=== PATIENT | male | born 1995 | race Two or more races ===

== ENCOUNTER 2019-03-26 07:46 | Emergency (ER) | payer OTHER ==
[2019-03-26 07:56] VITALS: BMI 18.6
--- NOTE | 2019-03-26 08:08 | PDOC ---
History of Present Illness - General Chief Complaint: Respiratory Stated Complaint: RESPIRATORY PROBLEM Time Seen by Provider: 03/26/19 08:08 History Source: Patient Exam Limitations: No Limitations - History of Present Illness Initial Comments: 24 year old male with no PMH presented to ED for chest pain since last night. Pt reported the first symptom he developed was an itchy rash to his legs x3-4 months ago. He reported the rash has been progressing to different parts of his body, his buttocks, legs, arms. He reported that about a week ago he developed sweats/chills/body aches/nausea/fever/cough 101F, figured he had the flu. He reported he has had >20 pound of weight loss in the last month despite eating a lot. He reported that he is homosexual having sex with another man who is HIV positive for the last 4-5 years, stopped Truvada x1 year ago due to warnings, but practices sex with condoms regularly. He reported he last had an HIV test x2 weeks ago that was negative, last was in the Summer before that. Pt reported he has no PCP and feels very run down, and when he developed chest pain last night he was prompted to come to the Emergency Department. ROS General: admitted to fever, chills, generalized weakness. HEENT: denied sore throat, rhinorrhea, ear pain. Cardiovascular: admitted to chest pain. denied palpitations, syncope, diaphoresis. Respiratory: admitted to cough. denied shortness of breath, sputum production, hemoptysis. Gastrointestinal: denied abdominal pain, nausea, vomiting, diarrhea, constipation, blood in stool. Genitourinary: denied dysuria, increased urinary frequency, hematuria, urinary incontinence, flank pain. Back: denied back pain. Musculoskeletal: admitted to joint pain, body aches, denied joint swelling. Neurological: denied headache, dizziness, numbness, tingling, weakness. Integumentary: denied rash, laceration, abrasion. Hematologic/Lymphatic: denied bruising or bleeding. PE Constitutional: Well-developed, appearing stated age. Thin. HEENT: head is normocephalic, atraumatic. EOMI. PERRLA. no posterior pharyngeal erythema.no tonsillar swelling or exudates bilaterally. uvula midline. no peritonsillar swelling, tenderness or abscess. no jaw tenderness or misalignment. Neck: supple. Full ROM. Cardiovascular: regular heart rhythm. no murmurs. no pericardial friction rub. Respiratory: clear to auscultation bilaterally. no crackles, rhonchi or wheezing. no stridor. Gastrointestinal: soft, nontender. normal bowel sounds. no rebound, guarding, masses. Extremities: peripheral pulses intact. no lower extremity edema. Neurological: CN 2-12 grossly intact. moves all four extremities. Psych: awake, alert, oriented x3. follows commands. answers questions appropriately. Skin: macular flesh colored and red lesions to bilateral buttocks. macular erythematous clusters to inner aspect of arms. papular erythematous lesions to bilateral lower legs, with excoriations. macular flesh colored rash to lower abdomen. Past History - Past Medical History Allergies/Adverse Reactions: Allergies Allergy/AdvReac Type Severity Reaction Status Date / Time Penicillins Allergy Hives Verified 03/26/19 07:51 Home Medications: Ambulatory Orders Loratadine [Claritin -] 10 mg PO DAILY #30 tablet 03/26/19 Omeprazole 20 mg PO DAILY 03/26/19 - Immunization History Immunization Up to Date: Yes - Psycho Social/Smoking Cessation Hx Smoking Status: Yes Smoking History: Unknown if ever smoked Have you smoked in the past 12 months: Yes Number of Cigarettes Smoked Daily: 3 'Breaking Loose' booklet given: 09/25/13 Hx Alcohol Use: No Drug/Substance Use Hx: No Substance Use Type: None Hx Substance Use Treatment: No *Physical Exam - Vital Signs Last Vital Signs Temp Pulse Resp BP Pulse Ox 97.7 F 65 18 125/74 97 03/26/19 07:53 03/26/19 07:53 03/26/19 07:53 03/26/19 07:53 03/26/19 07:53 ED Treatment Course - LABORATORY CBC & Chemistry Diagram: 03/26/19 09:05 03/26/19 08:45 Medical Decision Making - Medical Decision Making 24 year old male with above PMH presented to ED for multiple complaints - body aches, unintentional weight loss, night sweats, progressing itchy rash, chest pain, cough, generalized weakness. Initial Vital Signs Temp Pulse Resp BP Pulse Ox 97.7 F 65 18 125/74 97 03/26/19 07:53 03/26/19 07:53 03/26/19 07:53 03/26/19 07:53 03/26/19 07:53 Afebrile. No tachycardia. No tachypnea. No hypotension. No hypoxia on room air. Labs ordered: CBC, CMP, ESR, CRP, RPR, UA/UC, GC/Chlamydia, HIV Imaging ordered: CXR Medications ordered: tylenol IV, toradol IV, normal saline bolus 1000 cc once, benadryl 50 mg IV once Pt gave verbal and written consent for HIV testing. 03/26/19 11:46 Laboratory Last Values WBC 4.0 K/mm3 (4.0-10.0) 03/26/19 09:05 RBC 4.40 M/mm3 (4.00-5.60) 03/26/19 09:05 Hgb 13.4 GM/dL (11.7-16.9) 03/26/19 09:05 Hct 40.3 % (35.4-49) 03/26/19 09:05 MCV 91.5 fl (80-96) 03/26/19 09:05 MCH 30.5 pg (25.7-33.7) 03/26/19 09:05 MCHC 33.4 g/dl (32.0-35.9) 03/26/19 09:05 RDW 14.2 % (11.9-15.9) 03/26/19 09:05 Plt Count 168 K/MM3 (134-434) 03/26/19 09:05 MPV 8.4 fl (7.5-11.1) 03/26/19 09:05 Absolute Neuts (auto) 1.9 K/mm3 (1.5-8.0) 03/26/19 09:05 Neutrophils % 47.5 % (42.8-82.8) D 03/26/19 09:05 Lymphocytes % 36.2 % (8-40) D 03/26/19 09:05 Monocytes % 8.5 % (3.8-10.2) D 03/26/19 09:05 Eosinophils % 7.2 % (0-4.5) H D 03/26/19 09:05 Basophils % 0.6 % (0-2.0) 03/26/19 09:05 Nucleated RBC % 0 % (0-0) 03/26/19 09:05 ESR 6 mm/hr (0-10) 03/26/19 09:00 Sodium 139 mmol/L (136-145) 03/26/19 08:45 Potassium 4.1 mmol/L (3.5-5.1) 03/26/19 08:45 Chloride 107 mmol/L (98-107) 03/26/19 08:45 Carbon Dioxide 27 mmol/L (21-32) 03/26/19 08:45 Anion Gap 5 MMOL/L (8-16) L 03/26/19 08:45 BUN 13.0 mg/dL (7-18) 03/26/19 08:45 Creatinine 0.7 mg/dL (0.55-1.3) 03/26/19 08:45 Est GFR (CKD-EPI)AfAm 150.95 03/26/19 08:45 Est GFR (CKD-EPI)NonAf 130.24 03/26/19 08:45 Random Glucose 85 mg/dL (74-106) 03/26/19 08:45 Lactic Acid 0.7 mmol/L (0.4-2.0) 03/26/19 09:05 Calcium 8.8 mg/dL (8.5-10.1) 03/26/19 08:45 Total Bilirubin 0.4 mg/dL (0.2-1) 03/26/19 08:45 AST 21 U/L (15-37) 03/26/19 08:45 ALT 23 U/L (13-61) 03/26/19 08:45 Alkaline Phosphatase 59 U/L (45-117) 03/26/19 08:45 Troponin I < 0.02 ng/ml (0.00-0.05) 03/26/19 08:45 C-Reactive Protein < 0.3 MG/DL (0.00-0.3) 03/26/19 08:45 Total Protein 7.4 g/dl (6.4-8.2) 03/26/19 08:45 Albumin 4.2 g/dl (3.4-5.0) 03/26/19 08:45 Urine Color Yellow 03/26/19 09:20 Urine Appearance Clear 03/26/19 09:20 Urine pH 6.5 (5.0-8.0) 03/26/19 09:20 Ur Specific Reva 1.021 (1.010-1.035) 03/26/19 09:20 Urine Protein Negative (NEGATIVE) 03/26/19 09:20 Urine Glucose (UA) Negative (NEGATIVE) 03/26/19 09:20 Urine Ketones Negative (NEGATIVE) 03/26/19 09:20 Urine Blood Negative (NEGATIVE) 03/26/19 09:20 Urine Nitrite Negative (NEGATIVE) 03/26/19 09:20 Urine Bilirubin Negative (NEGATIVE) 03/26/19 09:20 Urine Urobilinogen 0.2 mg/dL (0.2-1.0) 03/26/19 09:20 Ur Leukocyte Esterase Negative (NEGATIVE) 03/26/19 09:20 RPR Titer Nonreactive (NONREACTIVE) 03/26/19 09:05 HIV 1&2 Antibody Screen Negative 03/26/19 09:05 HIV P24 Antigen Negative 03/26/19 09:05 Influenza A (Rapid) Negative (Negative) 03/26/19 09:05 Influenza B (Rapid) Negative (Negative) 03/26/19 09:05 Results given and explained to patient. Pt provided with copies. Pt reported improvement of symptoms. Pt given referral for [facility]. Pt advised to F/U promptly outpatient. Pt given return precautions. Pt advised to take benadryl and claritin for itching. Pt discharged. Call back placed for GC/Chlamydia/RPR. Discharge - Discharge Information Problems reviewed: Yes Clinical Impression/Diagnosis: Body aches, Weight loss, Joint pain Condition: Improved Disposition: HOME - Admission No - Additional Discharge Information Prescriptions: Loratadine [Claritin -] 10 mg PO DAILY #30 tablet - Follow up/Referral Referrals: [facility] [place] [facility] [place] [Provider Group] - Patient Discharge Instructions Patient Printed Discharge Instructions: DI for Rash, DI for Itching Additional Instructions: Follow up with a primary care doctor within 3 days regarding your Emergency Room visit. Your care is not complete until you follow up. I have provided you with a referral for our clinic system. Call today and ask for the soonest appointment. Follow up with a strawhat sizer within 5 days regarding your Emergency Room visit. I have provided you with a referral. If you do not have insurance the Primary Care Clinic can assist you with setting up specialist appointments. Drink lots of fluids to stay hydrated. Eat three meals a day. Get at least 8 hours of sleep a night. Take Tylenol over the counter for pain. Take as advised on label. Do not apply any fragrances, soaps, detergents. Buy all FREE AND CLEAR products. Take Claritin daily. Take Benadryl at night over the counter for itching. Take as advised on label. Return to the Emergency Department for increasing pain, fever, vomiting, chest pain, shortness of breath, lightheadedness or any other new, worsening or concerning symptoms. - Post Discharge Activity Work/Back to School Note: Back to Work
[2019-03-26] MEDS ORDERED: SODIUM CHLORIDE 1,000 ML IV STA (08:25)
[2019-03-26] MEDS ORDERED: ACETAMINOPHEN 1000 MG/100 ML VIAL (NON FORMULARY) IVPB ONE (08:25)
[2019-03-26] MEDS ORDERED: KETOROLAC TROMETHAMINE 30 MG/1 ML VIAL IVPUSH ONE (08:25)
--- NOTE | 2019-03-26 08:54 | PDOC ---
Attending Attestation - Resident Resident Name: Evelyn Her - ED Attending Attestation I have performed the following: I have examined & evaluated the patient, The case was reviewed & discussed with the resident, I agree w/resident's findings & plan, Exceptions are as noted - HPI HPI: 03/26/19 08:50 24y M no significant past medical history presenting with a complaint of intermitent rash wih increased itching and rash over his lower legs spreading to his lower abdomen and buttocks over the past several weeks. P.o. patient also endorses body aches and a low-grade fever approximately 1 week ago. Last night patient had some nausea, poor appetite, mild sharp chest pain when he is resting so presented for evaluation today. Patient also endorses several episodes of loose nonbloody stool without associate abdominal pain. Patient denies other symptoms such as blood per rectum, dysuria, hematuria, headache, focal neurologic symptoms. patient is homosexual, not on current medications, has been with one partner for several years and exclusive monogamous relationship. States he and his partner are regularly is tested for STIs and has been negative up till approximately 3 months ago Physicial Exma GENERAL: The patient is awake, alert, and fully oriented, Nontoxic - in no acute distress. HEAD: Normocephalic, atraumatic. EYES: extraocular movements intact, sclera anicteric, conjunctiva clear. ENT: Normal voice, Moist mucous membranes. NECK: Normal range of motion, supple LUNGS: Breath sounds equal, clear to auscultation bilaterally. No wheezes, no rhonchi, no rales. HEART: Regular rate and rhythm, normal S1 and S2 without murmur, rub or gallop. ABDOMEN: Soft, nontender, No guarding, no rebound. No CVA tenderness EXTREMITIES: Normal range of motion, no edema. NEUROLOGICAL: No facial assymetry, Normal speech, PSYCH: Normal mood, normal affect. SKIN: Intermittent erythematous plaques that appear to be excoriations on the lower extremities bilaterally in a stocking distribution, confluent erythematous plaques on the lower abdomen on the hairline of his pelvis. Not warm to the touch, not tender, no induration or fluctuance Will screen for STIs/HIV Based on the distribution of his rash it may be irritation from scratching, it is not as diffuse as I would expect for a systemic cause. If work-up negative will have patient follow-up primary care doctor for further management - Physicial Exam PE: 03/28/19 19:15 see above - Medical Decision Making 03/28/19 19:15 see above
[2019-03-26 09:36] LABS: BASO % 0.6 % (0-2.0); EOS % 7.2 % (0-4.5); HEMATOCRIT 40.3 % (35.4-49); HEMOGLOBIN 13.4 GM/dL (11.7-16.9); LYMPH % 36.2 % (8-40); MCH 30.5 pg (25.7-33.7); MCHC 33.4 g/dl (32.0-35.9); MEAN CELL VOLUME 91.5 fl (80-96); MEAN PLT VOLUME 8.4 fl (7.5-11.1); MONO % 8.5 % (3.8-10.2); NEUT % 47.5 % (42.8-82.8); PLATELET COUNT 168 K/MM3 (134-434); RDW 14.2 % (11.9-15.9)
[2019-03-26 09:38] LABS: PH,URINE 6.5 (5.0-8.0); URINE APPEARANCE CLEAR; URINE BILIRUBIN NEGATIVE (NEGATIVE); URINE COLOR YELLOW; URINE GLUCOSE (UA) NEGATIVE (NEGATIVE); URINE KETONE NEGATIVE (NEGATIVE); URINE LEUK ESTERASE NEGATIVE (NEGATIVE); URINE NITRITE NEGATIVE (NEGATIVE); URINE PROTEIN NEGATIVE (NEGATIVE); URINE UROBILINOGEN 0.2 mg/dL (0.2-1.0)
[2019-03-26] MEDS ORDERED: KETOROLAC TROMETHAMINE 30 MG/1 ML VIAL ONE (10:00)
[2019-03-26] MEDS ORDERED: ACETAMINOPHEN INJECTION 100 ML IVPB ONE (10:00)
[2019-03-26 10:21] LABS: ALBUMIN 4.2 g/dl (3.4-5.0); ALK PHOS 59 U/L (45-117); ANION GAP 5 MMOL/L (8-16); CALCIUM 8.8 mg/dL (8.5-10.1); CHLORIDE 107 mmol/L (98-107); CO2 27 mmol/L (21-32); CREATININE 0.7 mg/dL (0.55-1.3); GLUCOSE,RANDOM 85 mg/dL (74-106); POTASSIUM 4.1 mmol/L (3.5-5.1); SGOT/AST 21 U/L (15-37); SGPT/ALT 23 U/L (13-61); SODIUM 139 mmol/L (136-145); TOT PROT 7.4 g/dl (6.4-8.2)
[2019-03-26 10:42] LABS: BILIRUBIN,TOTAL 0.4 mg/dL (0.2-1)
[2019-03-26 12:18] VITALS: BP 106/63; PULSE 60; TEMP 97.8
== END 2019-03-26 12:10 | disposition home or self-care (01) ==
LOC: JER 07:46
PROC: 3E0337Z Introduction of Electrolytic and Water Balance Substance into Peripheral Vein, Percutaneous Approach (ICD-10-PCS; principal; 2019-03-26)
PROC: 3E033GC Introduction of Other Therapeutic Substance into Peripheral Vein, Percutaneous Approach (ICD-10-PCS; 2019-03-26)
PROC: 3E033NZ Introduction of Analgesics, Hypnotics, Sedatives into Peripheral Vein, Percutaneous Approach (ICD-10-PCS; 2019-03-26)
PROC: 3E0333Z Introduction of Anti-inflammatory into Peripheral Vein, Percutaneous Approach (ICD-10-PCS; 2019-03-26)
DX: R21 Rash and other nonspecific skin eruption (principal); M25.50 Pain in unspecified joint; R63.4 Abnormal weight loss; Z68.1 Body mass index [BMI] 19.9 or less, adult
CPT/HCPCS: 36415; 71046-TC-FY; 80053; 81003; 83605; 84484; 85025; 85651; 86140; 86593; 87040; 87086; 87389; 87491; 87591; 87804; 96361; 96374; 96375; 99283-25; J0131; J7030